=== PATIENT | female | born 2000 | race African-American/Black ===

== ENCOUNTER 2021-12-10 16:33 | Emergency (ER) | payer OTHER ==
[~2021-12-10] VITALS: Ht 165.1 cm; Wt 63.5 kg
[2021-12-10 16:45] VITALS: BP 134/80
== END 2021-12-10 17:12 | disposition left against medical advice (07) ==
LOC: EDBD 16:33 → ER 16:33
DX: M25.531 Pain in right wrist (principal); M79.641 Pain in right hand; Z53.29 Procedure and treatment not carried out because of patient's decision for other reasons; Y04.8XXA Assault by other bodily force, initial encounter; Y93.89 Activity, other specified; Y92.89 Other specified places as the place of occurrence of the external cause; Y99.8 Other external cause status